=== PATIENT | male | born 1980 | race Caucasian/White ===

== ENCOUNTER 2018-07-15 17:03 | Emergency (ER) | payer OTHER ==
[2018-07-15 17:22] VITALS: BP 151/91
--- NOTE | 2018-07-15 17:39 | UC ---
HPI Febrile Illness - HPI Summary HPI Summary: Started getting a fever5 days ago after spending the day in the sun. Since then has been trying to get rest and plenty of fluids, continues to have fever and violent chills every day. Denies cough, n/v/d, rash, urinary symptoms, or focal pain. Does have regular headaches and some joint aches when the fever spikes. 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 - History of Current Complaint Chief Complaint: UCGeneralIllness Time Seen by Provider: 07/15/18 17:19 Hx Obtained From: Patient Onset/Duration: Started Days Ago Timing: Constant Initial Severity: Moderate Current Severity: Moderate Pain Intensity: 6 Aggravating Factors: Nothing Alleviating Factors: Cool Soaks, OTC Medicine Associated Signs and Symptoms: Chills - Allergy/Home Medications Allergies/Adverse Reactions: Allergies Allergy/AdvReac Type Severity Reaction Status Date / Time No Known Allergies Allergy Verified 07/15/18 17:15 PMH/Surg Hx/FS Hx/Imm Hx Previously Healthy: Yes - Surgical History Surgical History: Yes Surgery Procedure, Year, and Place: Left elbow surgery 1993, hernia x2 2004 & 2006, VASECTOMY - Family History Known Family History: Positive: Seizure Disorder - sister, coincided with pregnancies, none recently, Other - grandmother with strokes Negative: Cardiac Disease, Blood Disorder - Social History Occupation: Employed Full-time Alcohol Use: Rare Substance Use Type: None Smoking Status (MU): Never Smoked Tobacco - Immunization History Most Recent Tetanus Shot: 2003 Review of Systems Constitutional: Fever, Chills, Fatigue Skin: Negative Eyes: Negative ENT: Negative Respiratory: Negative Cardiovascular: Negative Gastrointestinal: Negative Genitourinary: Negative Motor: Negative Neurovascular: Negative Musculoskeletal: Negative Neurological: Headache Psychological: Negative Is Patient Immunocompromised?: No All Other Systems Reviewed And Are Negative: Yes Physical Exam Triage Information Reviewed: Yes Appearance: Well-Nourished, Ill-Appearing Vital Signs: Initial Vital Signs Temp 101.9 F 07/15/18 17:15 Pulse 67 07/15/18 17:15 Resp 19 07/15/18 17:15 BP 151/91 07/15/18 17:15 Pulse Ox 100 07/15/18 17:15 Vital Signs Reviewed: Yes Eye Exam: Normal Eyes: Positive: Conjunctiva Clear ENT Exam: Normal ENT: Positive: Normal ENT inspection, Hearing grossly normal, Pharynx normal, TMs normal. Negative: Pharyngeal erythema, Nasal congestion Dental Exam: Normal Neck exam: Normal Neck: Positive: Supple Respiratory Exam: Normal Respiratory: Positive: Chest non-tender, Lungs clear, Normal breath sounds, No respiratory distress, No accessory muscle use Cardiovascular Exam: Normal Cardiovascular: Positive: RRR, No Murmur Musculoskeletal Exam: Normal Musculoskeletal: Positive: Strength Intact Neurological Exam: Normal Neurological: Positive: Alert Psychological Exam: Normal Skin Exam: Normal Diagnostics - Radiology No standard instances Xray Interpretation: No Acute Changes Radiology Interpretation Completed By: Radiologist Course/Dx - Diagnoses Clinic Provider Diagnoses: fever Discharge - Sign-Out/Discharge Documenting (check all that apply): Patient Departure - Discharge Plan Condition: Stable Disposition: HOME Prescriptions: Doxycycline Hyclate 100 mg PO BID #20 tablet Patient Education Materials: Fever in Adults (ED) Referrals: No Primary Care Phys,NOPCP [Primary Care Provider] - [facility] [place] [facility] REFERRAL [Outside] - 7 Days Additional Instructions: I have drawn many labs to try and determine what has been making you sick. I suspect it may be tick-borne illness, so I am starting treatment with doxycycline while we wait on labs. Please make every effort to see a primary care provider within a week for further evaluation. You can call Inocencia Baker at the [facility] if you need help making an appointment. - Billing Disposition and Condition Condition: STABLE Disposition: Home
--- NOTE | 2018-07-15 17:47 | RAD ---
HISTORY: fever x 6 days, malaise COMPARISONS: December 08, 2015 VIEWS: 4: Frontal dual-energy and lateral views of the chest. FINDINGS: CARDIOMEDIASTINAL SILHOUETTE: The cardiomediastinal silhouette is normal. EVAN: The evan are normal. PLEURA: The costophrenic angles are sharp. No pleural abnormalities are noted. LUNG PARENCHYMA: The lungs are clear. ABDOMEN: The upper abdomen is clear. There is no subphrenic gas. BONES AND SOFT TISSUES: No bone or soft tissue abnormalities are noted. OTHER: None. IMPRESSION: NO ACTIVE CARDIOPULMONARY DISEASE.
[2018-07-15] MEDS ORDERED: DOXYcycline CAP(*) 100 MG PO ONE (17:50)
[2018-07-16 11:29] LABS: EGFR Non-African American 93.5 (>60)
== END 2018-07-15 18:00 | disposition home or self-care (01) ==
LOC: UCCORT 17:03
DX: R50.9 Fever, unspecified (principal)
CPT/HCPCS: 36415; 71046; 80053; 86308; 86618; 86645; 86666; 86703; 86753; 99212; A9270-GY; G0463